=== PATIENT | female | born 2000 | race Caucasian/White ===

== ENCOUNTER 2018-02-14 12:31 | Emergency (ER) | END 2018-02-14 15:05 | disposition home or self-care (01) ==

== ENCOUNTER 2018-04-14 23:25 | Outpatient (CLI) | END 2018-04-15 02:03 | disposition home or self-care (01) ==

== ENCOUNTER 2018-08-01 21:00 | Inpatient (IN) | END 2018-08-04 17:22 | disposition home or self-care (01) | DRG 807 ==